=== PATIENT | female | born 1990 | race Caucasian/White ===

== ENCOUNTER 2022-08-14 18:43 | Emergency (ER) | payer MEDICAID ==
[~2022-08-14] VITALS: Ht 170.2 cm; Wt 54.4 kg
[2022-08-14 18:49] VITALS: BP_SYST 81
--- NOTE | 2022-08-14 18:57 | NUR ---
Patient triaged and placed in waiting room. VSS and patient appears in no acute distress at this time. Accompanied by FAMILY, awaiting available bed, and MD notified of need for MSE.
--- NOTE | 2022-08-14 18:59 | NUR ---
FAMILY SAYS PT NORMAL HAS LOW BP. CHECKED TWICE AND FOUND TO BE IN 80S SYSTOLIC. PT DOESNT APEAR TO HAVE ABNORMAL SYMOTOMS RELATED TO LOW BP. MD NOTIFIED.
--- NOTE | 2022-08-14 20:36 | NUR ---
Dr. Ghosh IN TRIAGE ROOM examining the patient.
[2022-08-14] MEDS ORDERED: ONDANSETRON 4 MG ODT TAB PO ONE (21:15)
[2022-08-14 21:48] LABS: BASOPHILS % (AUTO) 0.6 % (0.0-2.0); EOSINOPHILS # (AUTO) 0.2 K/uL (0.0-0.4); EOSINOPHILS % (AUTO) 2.2 % (0.0-4.0); HEMATOCRIT 38.6 % (36-48); HEMOGLOBIN 12.7 g/dL (12.0-16.0); LYMPHOCYTES # (AUTO) 2.3 K/uL (1.0-5.5); LYMPHOCYTES % (AUTO) 32.3 % (20.5-51.5); MEAN CORPUSCULAR HEMOGLOBIN 28 pg (27-31); MEAN CORPUSCULAR HGB CONC 33 % (32-36); MEAN CORPUSCULAR VOLUME 85 fL (79.0-98.0); MONOCYTES # (AUTO) 0.7 K/uL (0.0-1.0); MONOCYTES % (AUTO) 9.4 % (1.7-9.3); NEUTROPHILS # (AUTO) 3.9 K/uL (1.8-7.7); NEUTROPHILS % (AUTO) 55.5 % (40.0-70.0); PLATELET COUNT (AUTO) 274 K/uL (130-430); RED BLOOD CELL COUNT(AUTO) 4.54 MIL/uL (4.2-6.2); RED CELL DISTRIBUTION WIDTH 13.5 % (9.0-15.0); WHITE BLOOD COUNT (AUTO) 7.1 K/uL (4.8-10.8)
[2022-08-14 22:10] LABS: CALCIUM 9.3 mg/dL (8.4-11.0); CREATININE 0.71 mg/dL (0.55-1.30)
[2022-08-14 22:14] LABS: ALBUMIN 3.7 g/dL (3.4-4.8); TOTAL BILIRUBIN 0.2 mg/dL (0.0-1.0)
[2022-08-14 23:11] LABS: BILIRUBIN,URINE NEGATIVE (NEGATIVE); COLOR,URINE YELLOW (YELLOW); GLUCOSE,URINE NEGATIVE (NEGATIVE); KETONES,URINE NEGATIVE (NEGATIVE); LEUKOCYTE ESTERASE ,URINE TRACE (NEGATIVE); NITRITE, URINE POSITIVE (NEGATIVE); PROTEIN URINE NEGATIVE (NEGATIVE); UROBILINOGEN,URINE 0.2 (0.2-1.0)
[2022-08-14 23:19] LABS: BLOOD, URINE TRACE (NEGATIVE); CLARITY/URINE HAZY (CLEAR)
[2022-08-14 23:35] LABS: BACTERIA,URINE MANY /HPF (None Seen); MUCUS,URINE None Seen /LPF (None Seen); RBC,URINE 0-3 /HPF (0-3); URINE AMORPHOUS URATE 2+ /HPF (None Seen)
[2022-08-14] MEDS ORDERED: ONDANSETRON 4 MG ODT TAB ONE (23:55)
[2022-08-15] MEDS ORDERED: MEDR10TA10 PO
[2022-08-15 00:22] VITALS: BP_SYST 96
--- NOTE | 2022-08-15 00:23 | NUR ---
Patient given written and verbal discharge instructions and verbalizes understanding. ER MD discussed with patient the results and treatment provided. Patient in stable condition. ID arm band removed. Rx of MEDROXYPROGESTERONE given. Patient educated on pain management and to follow up with PMD. Pain Scale 0/10. Opportunity for questions provided and answered.
== END 2022-08-15 00:22 | disposition home or self-care (01) ==
LOC: SED 18:43
DX: R10.2 Pelvic and perineal pain (principal); N93.9 Abnormal uterine and vaginal bleeding, unspecified; R11.0 Nausea; Z79.899 Other long term (current) drug therapy
CPT/HCPCS: 99284; 74176; 76856; 80053; 81000; 83690; 85025; 87086; 36415; 76376; 81025; 83605; Q0162

== ENCOUNTER 2023-09-19 13:24 | Inpatient (IN) | payer MEDICAID ==
[~2023-09-19] VITALS: Ht 170.2 cm; Wt 73.5 kg
[~2023-09-19 13:24] MED LIST: MEDR10TA10 PO
[2023-09-19 13:50] VITALS: BP_SYST 76; PULSE 104; RESP 18; TEMP 99.5; O2SAT 98
[2023-09-19] MEDS: KETOROLAC TROMETHAMINE 30 MG VIAL IVP ONE (15:15)
[2023-09-19] MEDS: NACL 0.9% 1,000 ML IV ONE ×2 (15:16→20:18)
[2023-09-19 16:15] LABS: BILIRUBIN,URINE NEGATIVE (NEGATIVE); BLOOD, URINE 1+ (NEGATIVE); COLOR,URINE YELLOW (YELLOW); GLUCOSE,URINE NEGATIVE (NEGATIVE); KETONES,URINE NEGATIVE (NEGATIVE); LEUKOCYTE ESTERASE ,URINE 1+ (NEGATIVE); NITRITE, URINE NEGATIVE (NEGATIVE); PROTEIN URINE NEGATIVE (NEGATIVE); UROBILINOGEN,URINE 0.2 (0.2-1.0)
[2023-09-19 16:28] LABS: CLARITY/URINE SLIGHTLY HAZY (CLEAR)
[2023-09-19] MEDS: ONDANSETRON HCL 4 MG/2 ML VIAL IVP ONE (16:42)
[2023-09-19 16:53] LABS: BASOPHILS % (AUTO) 0.1 % (0.0-2.0); HEMATOCRIT 39.3 % (36-48); HEMOGLOBIN 13.5 g/dL (12.0-16.0); LYMPHOCYTES # (AUTO) 0.8 K/uL (1.0-5.5); LYMPHOCYTES % (AUTO) 4.2 % (20.5-51.5); MEAN CORPUSCULAR HEMOGLOBIN 29 pg (27-31); MEAN CORPUSCULAR HGB CONC 34 % (32-36); MEAN CORPUSCULAR VOLUME 85 fL (79.0-98.0); MONOCYTES % (AUTO) 5.5 % (1.7-9.3); NEUTROPHILS # (AUTO) 17.1 K/uL (1.8-7.7); NEUTROPHILS % (AUTO) 90.2 % (40.0-70.0); PLATELET COUNT (AUTO) 234 K/uL (130-430); RED BLOOD CELL COUNT(AUTO) 4.61 MIL/uL (4.2-6.2); RED CELL DISTRIBUTION WIDTH 13.6 % (9.0-15.0)
[2023-09-19 16:54] LABS: CALCIUM 8.5 mg/dL (8.4-11.0); CREATININE 0.51 mg/dL (0.55-1.30); POTASSIUM 3.1 mmol/L (3.5-5.1)
[2023-09-19 16:59] LABS: ALBUMIN 3.4 g/dL (3.4-4.8); BILIRUBIN,DIRECT 0.1 mg/dL (0.0-0.3); TOTAL BILIRUBIN 0.4 mg/dL (0.0-1.0); TOTAL PROTEIN, SERUM 7.1 g/dL (6.4-8.3)
[2023-09-19 17:07] LABS: BACTERIA,URINE MODERATE /HPF (None Seen)
[2023-09-19] MEDS: cefTRIAXone 1 GM IVPB PREMIX 50 ML IV ONE (17:21)
[2023-09-19 17:48] LABS: INR 1.1 (0.8-1.2); PROTHROMBIN TIME 11.8 SECS (9.5-12.5)
[2023-09-19] MEDS: ACETAMINOPHEN 500 MG TABLET PO ONE (18:00)
[2023-09-19 22:21] VITALS: BP_SYST 162; PULSE 73; RESP 20; TEMP 100
[2023-09-19] MEDS ORDERED: NALOXONE HCL 0.4 MG/ML AMP (NARCAN) IVP PRN ×2 (23:00)
[2023-09-19] MEDS ORDERED: LORazepam 2 MG/ML VIAL IVP PRN (23:00)
[2023-09-19] MEDS ORDERED: HYDROcodone/ACETAMIN 5-325 MG TAB (NORCO/ VICODIN) PO PRN (23:00)
[2023-09-19] MEDS ORDERED: cefTRIAXone 1 GM IVPB PREMIX 50 ML IV SCH (23:00)
[2023-09-19] MEDS: HYDROcodone/ACETAMIN 10-325 MG TAB PO PRN (23:42)
[2023-09-20] VITALS: BP_SYST 128; PULSE 82; RESP 18; TEMP 97.7; O2SAT 99
[2023-09-20 05:22] LABS: BASOPHILS % (AUTO) 0.3 % (0.0-2.0); EOSINOPHILS % (AUTO) 0.1 % (0.0-4.0); HEMATOCRIT 36.5 % (36-48); HEMOGLOBIN 12.2 g/dL (12.0-16.0); MEAN CORPUSCULAR HEMOGLOBIN 29 pg (27-31); MEAN CORPUSCULAR HGB CONC 33 % (32-36); MEAN CORPUSCULAR VOLUME 88 fL (79.0-98.0); MONOCYTES # (AUTO) 0.6 K/uL (0.0-1.0); MONOCYTES % (AUTO) 4.9 % (1.7-9.3); NEUTROPHILS # (AUTO) 11.1 K/uL (1.8-7.7); NEUTROPHILS % (AUTO) 86.7 % (40.0-70.0); PLATELET COUNT (AUTO) 216 K/uL (130-430); RED BLOOD CELL COUNT(AUTO) 4.17 MIL/uL (4.2-6.2); RED CELL DISTRIBUTION WIDTH 13.3 % (9.0-15.0); WHITE BLOOD COUNT (AUTO) 12.7 K/uL (4.8-10.8)
[2023-09-20 05:31] LABS: CALCIUM 7.9 mg/dL (8.4-11.0); CREATININE 0.44 mg/dL (0.55-1.30)
[2023-09-20] MEDS: NORMAL SALINE 5 ML DISP.SYRIN IVF SCH (06:39)
[2023-09-20 07:47] LABS: POTASSIUM 2.7 mmol/L (3.5-5.1)
[2023-09-20] MEDS ORDERED: KCL 40 mEq in 100 mL (PREMIX) 100 ML IV ONE (08:15)
[2023-09-20] MEDS: POTASSIUM CHLORIDE 20 mEq in 100 mL (PREMIX) 100 ML x 2 doses IV SCH (08:37)
[2023-09-20 08:40] VITALS: BP_SYST 109; PULSE 88; RESP 16; TEMP 100.4; O2SAT 96
[2023-09-20 10:19] VITALS: O2SAT 96
[2023-09-20] MEDS: ACETAMINOPHEN 325 MG TABLET PO PRN (10:29)
[2023-09-20 11:35] VITALS: BP_SYST 107; PULSE 73; RESP 15; TEMP 99.5; O2SAT 96
[2023-09-20 16:09] VITALS: BP_SYST 107; PULSE 73; RESP 15; TEMP 99.4; O2SAT 96
[2023-09-20] MEDS: cefTRIAXone 1 GM IVPB PREMIX 50 ML IV SCH (17:36)
[2023-09-20 20:00] VITALS: BP_SYST 103; PULSE 78; RESP 17; TEMP 97.8; O2SAT 96
[2023-09-21] VITALS (7 sets, daily range): BP systolic 96–112; PULSE 61–78; RESP 16–17; TEMP 97.2–98.8; O2SAT 96–98
[2023-09-21 05:11] LABS: ALBUMIN 2.8 g/dL (3.4-4.8); CALCIUM 8.5 mg/dL (8.4-11.0); CREATININE 0.49 mg/dL (0.55-1.30); POTASSIUM 3.6 mmol/L (3.5-5.1); TOTAL BILIRUBIN 0.2 mg/dL (0.0-1.0); TOTAL PROTEIN, SERUM 6.4 g/dL (6.4-8.3)
[2023-09-21 05:30] LABS: BASOPHILS % (AUTO) 0.5 % (0.0-2.0); EOSINOPHILS # (AUTO) 0.2 K/uL (0.0-0.4); HEMATOCRIT 38.6 % (36-48); HEMOGLOBIN 13.1 g/dL (12.0-16.0); LYMPHOCYTES # (AUTO) 2.2 K/uL (1.0-5.5); MEAN CORPUSCULAR HEMOGLOBIN 29 pg (27-31); MEAN CORPUSCULAR HGB CONC 34 % (32-36); MEAN CORPUSCULAR VOLUME 87 fL (79.0-98.0); MONOCYTES # (AUTO) 0.8 K/uL (0.0-1.0); MONOCYTES % (AUTO) 8.2 % (1.7-9.3); NEUTROPHILS % (AUTO) 65.3 % (40.0-70.0); PLATELET COUNT (AUTO) 204 K/uL (130-430); RED BLOOD CELL COUNT(AUTO) 4.46 MIL/uL (4.2-6.2); RED CELL DISTRIBUTION WIDTH 13.6 % (9.0-15.0); WHITE BLOOD COUNT (AUTO) 9.2 K/uL (4.8-10.8)
[2023-09-21 06:08] LABS: ERYTHROCYTE SEDIMENTATION RATE 20 MM/HR (0-20)
[2023-09-21] MEDS ORDERED: SIMETHICONE 80 MG TAB.CHEW PO PRN (09:45)
[2023-09-21] MEDS: COMMUNICATION ORDER XX ONE (09:45)
[2023-09-21] MEDS: ONDANSETRON HCL 4 MG/2 ML VIAL IVP PRN (11:13)
[2023-09-22 00:34] VITALS: BP_SYST 99; PULSE 71; RESP 16; TEMP 97.7; O2SAT 97
[2023-09-22 05:32] LABS: BASOPHILS % (AUTO) 0.7 % (0.0-2.0); EOSINOPHILS # (AUTO) 0.4 K/uL (0.0-0.4); EOSINOPHILS % (AUTO) 5.2 % (0.0-4.0); HEMATOCRIT 37.8 % (36-48); HEMOGLOBIN 12.8 g/dL (12.0-16.0); LYMPHOCYTES # (AUTO) 2.8 K/uL (1.0-5.5); MEAN CORPUSCULAR HEMOGLOBIN 30 pg (27-31); MEAN CORPUSCULAR HGB CONC 34 % (32-36); MEAN CORPUSCULAR VOLUME 87 fL (79.0-98.0); MONOCYTES # (AUTO) 0.6 K/uL (0.0-1.0); NEUTROPHILS # (AUTO) 3.2 K/uL (1.8-7.7); NEUTROPHILS % (AUTO) 45.1 % (40.0-70.0); PLATELET COUNT (AUTO) 242 K/uL (130-430); RED BLOOD CELL COUNT(AUTO) 4.33 MIL/uL (4.2-6.2); RED CELL DISTRIBUTION WIDTH 13.6 % (9.0-15.0); WHITE BLOOD COUNT (AUTO) 7.1 K/uL (4.8-10.8)
[2023-09-22 05:53] LABS: CALCIUM 8.8 mg/dL (8.4-11.0); CREATININE 0.51 mg/dL (0.55-1.30); POTASSIUM 3.8 mmol/L (3.5-5.1)
[2023-09-22 06:04] LABS: ERYTHROCYTE SEDIMENTATION RATE 26 MM/HR (0-20)
[2023-09-22 08:00] VITALS: BP_SYST 92; PULSE 84; RESP 16; TEMP 97.1; O2SAT 97
[2023-09-22 14:28] VITALS: BP_SYST 95; PULSE 83; RESP 16; TEMP 97.9; O2SAT 97
[2023-09-22 17:02] VITALS: BP_SYST 106; PULSE 64; RESP 18; TEMP 98.4; O2SAT 96
[2023-09-22] MEDS ORDERED: L.RH1CAP PO (17:12)
[2023-09-22] MEDS ORDERED: LEVO250T73 PO (17:12)
[2023-09-22 17:48] VITALS: BP_SYST 102; PULSE 67; RESP 16; TEMP 97.9; O2SAT 100
== END 2023-09-22 19:00 | disposition home or self-care (01) | DRG 466 ==
LOC: SED 13:24 → SMU 19:37
PROVIDERS: ADMIT Preventive Medicine Preventive Medicine/Occupational Environmental Medicine; ATTEND Preventive Medicine Preventive Medicine/Occupational Environmental Medicine
DX: T83.518A Infection and inflammatory reaction due to other urinary catheter, initial encounter (principal); A41.9 Sepsis, unspecified organism; G82.50 Quadriplegia, unspecified; E88.09 Other disorders of plasma-protein metabolism, not elsewhere classified; N39.0 Urinary tract infection, site not specified; N31.9 Neuromuscular dysfunction of bladder, unspecified; B96.89 Other specified bacterial agents as the cause of diseases classified elsewhere; E87.6 Hypokalemia; Z79.899 Other long term (current) drug therapy; Z90.49 Acquired absence of other specified parts of digestive tract; Z98.1 Arthrodesis status; Z87.440 Personal history of urinary (tract) infections; Z72.0 Tobacco use
CPT/HCPCS: 36415; 71045; 80048; 80053; 80076; 81000; 81001; 81015; 83605; 85025; 85610; 85651; 85730; 87040; 87086; 87186; 93005; 99291; J0696; J1885; J2405; J3480